=== PATIENT | male | born 1945 | race Caucasian/White ===

== ENCOUNTER 2016-10-28 16:26 | Observation (INO) | payer OTHER ==
[~2016-10-28] VITALS: Ht 170.2 cm; Wt 77.0 kg
[~2016-10-28 16:26] MED LIST: AMIT50TA13 PO; ATOR20TA42 PO; CEFADROXIL; DIOV160T60 PO; FENT25DI TD; HYDR10TA16 PO; METH500T3 PO; PROT40TA PO; REST30CA PO; TIZA4 PO; [UNRECOGNIZED DRUG - CODE] PO; bystolic PO
[2016-10-28 16:30] VITALS: BP 138/83; PULSE 89; RESP 16; TEMP 97.9; O2SAT 97
--- NOTE | 2016-10-28 16:52 | PD ---
HPI Chief Complaint: S/P FALL Time Seen by Provider: 16:43 Travel History International Travel<30 days: No Contact w/Intl Traveler<30days: No Traveled to known affect area: No History of Present Illness HPI WAS WORKING ON ROOF AND FELL DOWN....NO LOC PER PATIENT, EMS PLACED CCOLLAR ON BUT PATIENT REFUSED BACKBOARD..AGREED TO BE BROUGHT INTO ER FOR FURTHER EVALUATION. PFSH Past Medical History High Cholesterol: Yes Diabetes: No Diminished Hearing: No Hypertension: Yes Immunizations Current: No Past Surgical History Abdominal Surgery: Yes (right inguinal hernia "30 yrs ago"; abd hernia and infection 2004) Joint Replacement: Yes (both knees 2006) Social History Alcohol Use: Yes (2 beers daily) Tobacco Use: No Substance Use: No Allergies-Medications (Allergen,Severity, Reaction): Coded Allergies: Morphine (Verified Allergy, Intermediate, confusion, 10/28/16) Reported Meds & Prescriptions Reported Meds & Active Scripts Active Reported [prevagen] Xarelto (Rivaroxaban) Unknown Strength Tab Unknown Dose PO DAILY Clonidine (Clonidine HCl) Unknown Strength Tab Unknown Dose PO BID Hydrocodone-Acetaminophen 10-325 mg Tab 1 Tab PO Q8HR PRN Fentanyl Patch 72 HR (Fentanyl) 50 Mcg/Hr Patch 50 Mcg T-DERMAL Q72H Remove old patch when new one placed. Lipitor (Atorvastatin Calcium) 20 Mg Tab 20 Mg PO HS Amitriptyline (Amitriptyline HCl) 50 Mg Tab 100 Mg PO HS Review of Systems Except as stated in HPI: all other systems reviewed are Neg Musculoskeletal: Positive: Pain (CHEST WALL PAIN) Physical Exam Narrative GENERAL: SKIN: Warm and dry. HEAD: Atraumatic. Normocephalic. EYES: Pupils equal and round. No scleral icterus. No injection or drainage. ENT: No nasal bleeding or discharge. Mucous membranes pink and moist. NECK: Trachea midline. No JVD. CARDIOVASCULAR: Regular rate and rhythm. RESPIRATORY: No accessory muscle use. Clear to auscultation. Breath sounds equal bilaterally. GASTROINTESTINAL: Abdomen soft, non-tender, nondistended. Hepatic and splenic margins not palpable. MUSCULOSKELETAL: Extremities without clubbing, cyanosis, or edema. No obvious deformities. BUT CHEST WALL TTPALPATION ON EXAMINATION (ON RIGHT SIDE) , NO CREPITUS, NO STEPOFFS NEUROLOGICAL: Awake and alert. No obvious cranial nerve deficits. Motor grossly within normal limits. Five out of 5 muscle strength in the arms and legs. Normal speech. PSYCHIATRIC: Appropriate mood and affect; insight and judgment normal. Data Data Last Documented VS Vital Signs Date Time Temp Pulse Resp B/P Pulse Ox O2 Delivery O2 Flow Rate FiO2 10/28/16 21:09 89 16 159/81 99 10/28/16 16:30 Room Air 10/28/16 16:30 97.9 Orders I-Stat Profile (10/28/16 16:43) Ct Brain W/O Iv Contrast(Rout) (10/28/16 16:43) Ct Cerv Spine W/O Contrast (10/28/16 16:43) Ct Abd/Pel W Iv Contrast(Rout) (10/28/16 16:43) Ct Thorax/ Chest W Iv Contrast (10/28/16 16:43) Blood Glucose (10/28/16 16:43) I-Stat Creatinine (10/28/16 18:08) Vascular Access Team Consult/P PRN (10/28/16 18:49) Vascular Poc Ultrasound (10/28/16 ) Ct Thor Spine W/O Contrast (10/28/16 19:43) Ct Lumb Spine W/O Contrast (10/28/16 19:43) Complete Blood Count With Diff (10/28/16 19:43) Prothrombin Time / Inr (Pt) (10/28/16 19:43) Act Partial Throm Time (Ptt) (10/28/16 19:43) Hepatic Functional Panel (10/28/16 19:43) Lipase (10/28/16 19:43) Urinalysis - C+S If Indicated (10/28/16 19:43) Chest, Single Ap (10/28/16 19:43) Pelvis, Ap Only (Routine) (10/28/16 19:43) Cefazolin 2 Gm Premix (Ancef 2 Gm Premix (10/28/16 19:45) Glck-Hvb-Qiipnp (Booster) Inj (Boostrix (10/28/16 19:45) Sodium Chlor 0.9% 1000 Ml Inj (Ns 1000 M (10/28/16 19:45) Shoulder, Complete (>2vws) (10/28/16 19:43) Shoulder, Complete (>2vws) (10/28/16 19:43) Ed Poc Ultrasound (10/28/16 19:47) Ice/Cold Pack (10/28/16 21:00) Splint Or Brace Apply/Monitor (10/28/16 21:00) Electrocardiogram (10/28/16 19:58) Iohexol 350 Inj (Omnipaque 350 Inj) (10/28/16 21:27) Hydromorphone Pf Inj (Dilaudid Pf Inj) (10/28/16 22:30) Ondansetron Inj (Zofran Inj) (10/28/16 22:30) Admit Order (Ed Use Only) (10/28/16 22:23) Quality Assurance Associate / Telemetry ULISSES.Q8H (10/28/16 22:23) Vital Signs (Adult) Q4H (10/28/16 22:23) Sips And Chips (10/28/16 22:23) Activity Bed Rest With Brp (10/28/16 22:23) ^ Saline Lock (10/28/16 22:23) Resp Oxygen Dao C Titrat 1-4 L (10/28/16 ) Notify Dr: Other (10/28/16 22:23) Ondansetron Inj (Zofran Inj) (10/28/16 22:30) Neuro Checks . ORDERED (10/28/16 22:23) Sodium Chloride 0.9% Flush (Ns Flush) (10/29/16 09:00) Sodium Chloride 0.9% Flush (Ns Flush) (10/28/16 22:30) Hydromorphone Pf Inj (Dilaudid Pf Inj) (10/28/16 22:30) Labs Laboratory Tests Test 10/28/16 10/28/16 10/28/16 16:50 19:05 21:06 Bedside Hemoglobin 12.9 G/DL Bedside Hematocrit 38.0 % Bedside Sodium 144 MMOL/L Bedside Potassium 4.1 MMOL/L Bedside Chloride 110 MMOL/L Bedside Blood Urea Nitrogen 21 MG/DL Bedside Glucose 114 MG/DL Total Bilirubin 0.5 MG/DL Direct Bilirubin 0.1 MG/DL Indirect Bilirubin 0.4 MG/DL Aspartate Amino Transf 33 U/L (AST/SGOT) Alanine Aminotransferase 31 U/L (ALT/SGPT) Alkaline Phosphatase 86 U/L Total Protein 7.2 GM/DL Albumin 4.3 GM/DL Lipase 103 U/L Bedside Creatinine 0.6 MG/DL White Blood Count 12.6 TH/MM3 Red Blood Count 4.03 MIL/MM3 Hemoglobin 13.0 GM/DL Hematocrit 37.6 % Mean Corpuscular Volume 93.3 FL Mean Corpuscular Hemoglobin 32.3 PG Mean Corpuscular Hemoglobin 34.6 % Concent Red Cell Distribution Width 13.6 % Platelet Count 151 TH/MM3 Mean Platelet Volume 8.0 FL Neutrophils (%) (Auto) 86.9 % Lymphocytes (%) (Auto) 5.1 % Monocytes (%) (Auto) 8.0 % Eosinophils (%) (Auto) 0.0 % Basophils (%) (Auto) 0.0 % Neutrophils # (Auto) 11.0 TH/MM3 Lymphocytes # (Auto) 0.6 TH/MM3 Monocytes # (Auto) 1.0 TH/MM3 Eosinophils # (Auto) 0.0 TH/MM3 Basophils # (Auto) 0.0 TH/MM3 CBC Comment DIFF FINAL Differential Comment Prothrombin Time 11.5 SEC Prothromb Time International 1.0 RATIO Ratio Activated Partial 25.7 SEC Thromboplast Time MDM Medical Decision Making Medical Screen Exam Complete: Yes Emergency Medical Condition: Yes Medical Record Reviewed: Yes Differential Diagnosis FX V DISLOCATION V RIB FX VS SPLEEN/LIVER LAC V PTX V ICH Narrative Course PATIENT MAINTAINED ON C COLLAR DURING EVALUATION AND SIGNED OUT TO DR FIGUEREDO PENDING CT TO BE PERFORMED AND RESULTED AND FURTHER DISPOSITION SINCE ONLY AVAILABLE LABS AT THE TIME WAS ISTAT. Diagnosis Primary Impression: Fall from height of greater than 3 feet Fabian Pike MD Oct 28, 2016 16:52
[2016-10-28 17:08] LABS: I-STAT POTASSIUM 4.1 MMOL/L (3.5-4.9)
--- NOTE | 2016-10-28 19:11 | PD ---
Physical Exam Narrative General: The patient is a well-developed well-nourished male in no acute distress. The patient is currently in the cervical collar. Head and Neck exam: Head is normocephalic atraumatic. No facial bone tenderness or increased facial bone mobility noted on palpation. Eyes: EOMI, pupils are equal round and reactive to light. Nose: Midline septum with pink mucous membranes Mouth: Dentition unremarkable. Moist mucus membranes. Posterior oropharynx is not erythematous. No tonsillar hypertrophy. Uvula midline. Airway patent. Neck: The patient is immobilized in a cervical collar. No tracheal deviation. The trachea appears midline. Cardiovascular: Regular rate and rhythm without murmurs, gallops, or rubs. No pulse deficit to the extremities and simultaneous auscultation and palpation of his radial artery. Lungs: Clear to auscultation bilaterally. No wheezes, rhonchi, or rales. No chest wall tenderness to palpation. No erythema or ecchymosis noted. No crepitus , step off, or flail segment noted. Abdomen: Soft, with minimal tenderness reported on palpation of the left lower quadrant of the abdomen and the right upper quadrant of the abdomen. No guarding, rebound, or rigidity. No erythema or ecchymosis noted. Extremities: No instability noted on pelvic rock, however the patient has tenderness on palpation along the right side of the lateral hip.. No clubbing, cyanosis, or edema. 2+ pulses in all 4 extremities. No extremity tenderness or deformity noted on palpation or passive/ active range of motion, except reported pain in bilateral shoulders, however the patient has full range of motion without crepitus, step off. Back: The patient was log rolled off the backboard prior to my arrival when he was initially examined by Dr. Pike. Neurologic Exam: Cranial nerves 2-12 were intact on exam. Strength is 5/5 in all 4 extremities. No sensory deficits noted. Skin Exam: No rash noted. I the patient has an abrasion to the right upper extremity. Data Data Last Documented VS Vital Signs Date Time Temp Pulse Resp B/P Pulse Ox O2 Delivery O2 Flow Rate FiO2 10/28/16 21:09 89 16 159/81 99 10/28/16 16:30 Room Air 10/28/16 16:30 97.9 Orders I-Stat Profile (10/28/16 16:43) Ct Brain W/O Iv Contrast(Rout) (10/28/16 16:43) Ct Cerv Spine W/O Contrast (10/28/16 16:43) Ct Abd/Pel W Iv Contrast(Rout) (10/28/16 16:43) Ct Thorax/ Chest W Iv Contrast (10/28/16 16:43) Blood Glucose (10/28/16 16:43) I-Stat Creatinine (10/28/16 18:08) Vascular Access Team Consult/P PRN (10/28/16 18:49) Vascular Poc Ultrasound (10/28/16 ) Ct Thor Spine W/O Contrast (10/28/16 19:43) Ct Lumb Spine W/O Contrast (10/28/16 19:43) Complete Blood Count With Diff (10/28/16 19:43) Prothrombin Time / Inr (Pt) (10/28/16 19:43) Act Partial Throm Time (Ptt) (10/28/16 19:43) Hepatic Functional Panel (10/28/16 19:43) Lipase (10/28/16 19:43) Urinalysis - C+S If Indicated (10/28/16 19:43) Chest, Single Ap (10/28/16 19:43) Pelvis, Ap Only (Routine) (10/28/16 19:43) Cefazolin 2 Gm Premix (Ancef 2 Gm Premix (10/28/16 19:45) Hsks-Wse-Xajhae (Booster) Inj (Boostrix (10/28/16 19:45) Sodium Chlor 0.9% 1000 Ml Inj (Ns 1000 M (10/28/16 19:45) Shoulder, Complete (>2vws) (10/28/16 19:43) Shoulder, Complete (>2vws) (10/28/16 19:43) Ed Poc Ultrasound (10/28/16 19:47) Ice/Cold Pack (10/28/16 21:00) Splint Or Brace Apply/Monitor (10/28/16 21:00) Electrocardiogram (10/28/16 19:58) Iohexol 350 Inj (Omnipaque 350 Inj) (10/28/16 21:27) Hydromorphone Pf Inj (Dilaudid Pf Inj) (10/28/16 22:30) Ondansetron Inj (Zofran Inj) (10/28/16 22:30) Admit Order (Ed Use Only) (10/28/16 22:23) Preschool Teacher Aide / Telemetry ULISSES.Q8H (10/28/16 22:23) Vital Signs (Adult) Q4H (10/28/16 22:23) Sips And Chips (10/28/16 22:23) Activity Bed Rest With Brp (10/28/16 22:23) Complete Blood Count With Diff (10/29/16 06:00) Basic Metabolic Panel (Bmp) (10/29/16 06:00) ^ Saline Lock (10/28/16 22:23) Resp Oxygen Dao C Titrat 1-4 L (10/28/16 ) Notify Dr: Other (10/28/16 22:23) Ondansetron Inj (Zofran Inj) (10/28/16 22:30) Neuro Checks . ORDERED (10/28/16 22:23) Sodium Chloride 0.9% Flush (Ns Flush) (10/29/16 09:00) Sodium Chloride 0.9% Flush (Ns Flush) (10/28/16 22:30) Hydromorphone Pf Inj (Dilaudid Pf Inj) (10/28/16 22:30) Labs Laboratory Tests Test 10/28/16 10/28/16 10/28/16 16:50 19:05 21:06 Bedside Hemoglobin 12.9 G/DL Bedside Hematocrit 38.0 % Bedside Sodium 144 MMOL/L Bedside Potassium 4.1 MMOL/L Bedside Chloride 110 MMOL/L Bedside Blood Urea Nitrogen 21 MG/DL Bedside Glucose 114 MG/DL Total Bilirubin 0.5 MG/DL Direct Bilirubin 0.1 MG/DL Indirect Bilirubin 0.4 MG/DL Aspartate Amino Transf 33 U/L (AST/SGOT) Alanine Aminotransferase 31 U/L (ALT/SGPT) Alkaline Phosphatase 86 U/L Total Protein 7.2 GM/DL Albumin 4.3 GM/DL Lipase 103 U/L Bedside Creatinine 0.6 MG/DL White Blood Count 12.6 TH/MM3 Red Blood Count 4.03 MIL/MM3 Hemoglobin 13.0 GM/DL Hematocrit 37.6 % Mean Corpuscular Volume 93.3 FL Mean Corpuscular Hemoglobin 32.3 PG Mean Corpuscular Hemoglobin 34.6 % Concent Red Cell Distribution Width 13.6 % Platelet Count 151 TH/MM3 Mean Platelet Volume 8.0 FL Neutrophils (%) (Auto) 86.9 % Lymphocytes (%) (Auto) 5.1 % Monocytes (%) (Auto) 8.0 % Eosinophils (%) (Auto) 0.0 % Basophils (%) (Auto) 0.0 % Neutrophils # (Auto) 11.0 TH/MM3 Lymphocytes # (Auto) 0.6 TH/MM3 Monocytes # (Auto) 1.0 TH/MM3 Eosinophils # (Auto) 0.0 TH/MM3 Basophils # (Auto) 0.0 TH/MM3 CBC Comment DIFF FINAL Differential Comment Prothrombin Time 11.5 SEC Prothromb Time International 1.0 RATIO Ratio Activated Partial 25.7 SEC Thromboplast Time MDM Medical Record Reviewed: Yes Supervised Visit with JAKE: No Interpretation(s) Last Impressions Thoracic Spine CT 10/28/161942 Signed Impressions: Service Date/Time: Friday, October 28, 2016 20:41 - CONCLUSION: 1. Minimal fractures along the endplates superiorly at T3 and T12. 2. Fracture of the right third and fifth ribs medially. 3. Transverse process fracture on the right at T3. Girish Gannon MD Shoulder X-Ray 10/28/161942 Signed Impressions: Service Date/Time: Friday, October 28, 2016 20:20 - CONCLUSION: Degenerative changes without fracture. Girish Gannon MD Shoulder X-Ray 10/28/161942 Signed Impressions: Service Date/Time: Friday, October 28, 2016 20:18 - CONCLUSION: Minimal fracture distal clavicle. Girish Gannon MD Pelvis X-Ray 10/28/161942 Signed Impressions: Service Date/Time: Friday, October 28, 2016 20:25 - CONCLUSION: No acute fracture. Girish Gannon MD Lumbar Spine CT 10/28/161942 Draft Impressions: Service Date/Time: Friday, October 28, 2016 20:38 - CONCLUSION: 1. Minimal fracture superior endplate T12. 2. No lumbar spine fracture. Girish Gannon MD Chest X-Ray 10/28/161942 Signed Impressions: Service Date/Time: Friday, October 28, 2016 20:17 - CONCLUSION: Bibasilar densities. Girish Gannon MD Head CT 10/28/161642 Signed Impressions: Service Date/Time: Friday, October 28, 2016 20:32 - CONCLUSION: 1. Soft tissue contusion. 2. No acute intracranial abnormalities. Girish Gannon MD Chest CT 10/28/161642 Signed Impressions: Service Date/Time: Friday, October 28, 2016 20:41 - CONCLUSION: 1. Minimal bibasilar atelectasis. 2. Coronary artery calcifications. 3. No acute thoracic injury. Girish Gannon MD Cervical Spine CT 10/28/161642 Signed Impressions: Service Date/Time: Friday, October 28, 2016 20:34 - CONCLUSION: 1. No fracture or subluxation. Girish Gannon MD Abdomen/Pelvis CT 10/28/161642 Signed Impressions: Service Date/Time: Friday, October 28, 2016 20:38 - CONCLUSION: 1. Minimal fracture T12 vertebral body. 2. No abdominal visceral injury. Girish Gannon MD Narrative Course During the course of the patients emergency department visit, the patients history, examination, and differential diagnosis were reviewed with the patient. The patient had IV access obtained and blood work sent for analysis. The patient's case was checked out to me by Dr. Pike at the conclusion of his shift. Please see his complete history and physical. The patient reportedly fell off of a roof. The patient was ambulatory at the scene. The patient reports to me that he was sitting up on his single story roof of his house in a chair when the leg of the chair collapsed causing him to fall off of the roof and land on his back. The patient reports that he now has bilateral shoulder pain, back pain all the way down his back. He denies having any numbness or tingling to his extremities. He denies having any chest pain, chest pressure, shortness of breath, abdominal pain. He denies having any loss of consciousness. 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 A chest x-ray, pelvic x-ray, bilateral shoulder films has been ordered. A CT scan of the head, neck, thorax, abdomen and pelvis, T-spine and L -spine have been ordered. The patient had an ECG done. The patient's ECG reveals a sinus rhythm heart rate of 68, borderline left axis deviation, incomplete right bundle branch block. No acute ST segment elevation or depression is noted. QRS duration is 102 ms, QTC 364 ms. A fast examination was done by me. The patient's fast was negative for peritoneal or pericardial fluid collections. The patient was initially provided an update of his tetanus, Ancef 2 g IV, normal saline 1 L IV fluid bolus. The patients laboratory studies were reviewed and remarkable for a hemoglobin of 12.9, i-STAT revealed a sodium of 144, potassium 4.1, chloride 110, BUN 21, glucose 114. Creatinine is 0.6. Radiology studies were reviewed and remarkable for a CT scan of the brain that shows soft tissue contusion, no acute intracranial abnormality. CT scan of the C-spine shows no fracture or subluxation. The patient's cervical collar will be removed. CT scan of the chest reveals minimal bibasilar atelectasis, coronary artery calcifications, no acute thoracic injury. CT scan of the abdomen and pelvis shows minimal fracture T12 vertebral body, no abdominal visceral injury. CT scan of the T-spine reveals minimal fractures along the end plate superiorly at T3 and T12, fracture of the right third and fifth ribs medially, transverse process fracture on the right at T3. Shoulder x-ray on the left reveals degenerative changes, no acute abnormality. Shoulder x-ray on the left reveals minimal fracture of the distal clavicle. The patient will be placed in a sling. Pelvic x-ray shows no acute abnormality. CT scan of the lumbar spine shows minimal fracture superior endplate T12, no lumbar spine fractures, chest x-ray shows right basilar atelectasis. No other acute abnormality. A call was then placed out to the trauma surgeon regarding this patient's multiple traumatic injuries and the fact that he is chronically anticoagulated on Xarelto. The patient will likely be admitted for observation. The patients results were discussed with the patient, including the plan of care. I explained that further testing and/ or monitoring is indicated based on the patients history, examination, and/ or laboratory findings. Therefore, I recommended admission for additional evaluation. The patient expressed understanding and was agreeable with this plan. The patient was admitted to the hospital in stable condition and sent to a bed under the care of the trauma service. Procedures Procedure Narrative Emergency department FAST was performed with patient consent. The curvilinear probe was used in the right upper quadrant/Morison's pouch, suprapubic, left upper quadrant/spleenorenal space, and epigastric. There was no evidence of peritoneal free fluid, or pericardial effusion. Physician Communication Physician Communication The patient's case was discussed with Dr. Peres who did agree to admit the patient for further evaluation and treatment at this time. Diagnosis Primary Impression: Fall from height of greater than 3 feet Additional Impressions: Right clavicle fracture Qualified Code: S42.034A - Closed nondisplaced fracture of acromial end of right clavicle, initial encounter T3 vertebral fracture Qualified Code: S22.039A - Closed fracture of third thoracic vertebra, unspecified fracture morphology, initial encounter Fracture, ribs Qualified Code: S22.41XA - Closed fracture of multiple ribs of right side, initial encounter T12 compression fracture Qualified Code: S22.080A - T12 compression fracture, closed, initial encounter Admitting Information Admitting Physician Requests: Observation Anamika Veronica MD Oct 28, 2016 19:11
[2016-10-28] MEDS ORDERED: ceFAZolin 2 GM PREMIX 50 ML IV ONE (19:45)
[2016-10-28] MEDS ORDERED: SODIUM CHLOR 0.9% 1000 ML INJ 1,000 ML IV ONE (19:45)
[2016-10-28] MEDS ORDERED: DIPHTH/TETANUS/ACEL PERTUSSIS (BOOSTER) 0.5 ML VIAL/PFS IM ONE (19:45)
[2016-10-28 19:46] VITALS: BP 138/83; PULSE 89; RESP 16; TEMP 97.9; O2SAT 98
--- NOTE | 2016-10-28 20:36 | RADRPT ---
EXAM DATE/TIME: 10/28/2016 20:17 [facility] COMPARISON: No previous studies available for comparison. INDICATIONS : Chest pain after fall. MEDICAL HISTORY : None. SURGICAL HISTORY : None. ENCOUNTER: Initial ACUITY: 1 day PAIN SCORE: 10 LOCATION: Bilateral chest FINDINGS: A single view of the chest demonstrates bibasilar densities. Heart normal. The cardiomediastinal cont ours are unremarkable. Osseous structures are intact. CONCLUSION: Bibasilar densities. Girish Gannon MD on October 28, 2016 at 20:32 Board Certified Radiologist. This report was verified electronically.
--- NOTE | 2016-10-28 20:38 | RADRPT ---
EXAM DATE/TIME: 10/28/2016 20:18 [facility] COMPARISON: No previous studies available for comparison. INDICATIONS : Right shoulder pain after fall. MEDICAL HISTORY : None. SURGICAL HISTORY : None. ENCOUNTER: Initial ACUITY: 1 day PAIN SCORE: 10/10 LOCATION: Right shoulder. FINDINGS: Multiple view examination of the right shoulder demonstrates fracture distal clavicle. This extends into the a.c. joint. Mild degenerative changes of the shoulder The glenohumeral and acromioclavicular joints are maintained. There is normal range of motion between internal and external rotation. Bon y mineralization is normal. CONCLUSION: Minimal fracture distal clavicle. Girish Gannon MD on October 28, 2016 at 20:35 Board Certified Radiologist. This report was verified electronically.
--- NOTE | 2016-10-28 20:39 | RADRPT ---
EXAM DATE/TIME: 10/28/2016 20:20 [facility] COMPARISON: No previous studies available for comparison. INDICATIONS : Left shoulder pain after fall. MEDICAL HISTORY : None. SURGICAL HISTORY : None. ENCOUNTER: Initial ACUITY: 1 day PAIN SCORE: 10/10 LOCATION: Left shoulder. FINDINGS: Multiple view examination of the left shoulder demonstrates no evidence of fracture or dislocation. D egenerative changes. Bony mineralization is normal. CONCLUSION: Degenerative changes without fracture. Girish Gannon MD on October 28, 2016 at 20:37 Board Certified Radiologist. This report was verified electronically.
--- NOTE | 2016-10-28 20:39 | RADRPT ---
EXAM DATE/TIME: 10/28/2016 20:25 [facility] COMPARISON: No previous studies available for comparison. INDICATIONS : Pelvic pain after fall. MEDICAL HISTORY : None. SURGICAL HISTORY : None. ENCOUNTER: Initial ACUITY: 1 day PAIN SCORE: 10/10 LOCATION: Bilateral buttock FINDINGS: A single frontal view of the pelvis demonstrates no evidence of fracture. The bony pelvic ring is in tact. Bony mineralization is normal. The soft tissues are intact. Penile prosthesis. Mild degenerat malik changes of the tibia. CONCLUSION: No acute fracture. Girish Gannon MD on October 28, 2016 at 20:37 Board Certified Radiologist. This report was verified electronically.
[2016-10-28 20:49] LABS: INDIRECT BILIRUBIN 0.4 MG/DL (0.0-0.8); TOTAL BILIRUBIN ADULT 0.5 MG/DL (0.2-1.0)
[2016-10-28 21:09] VITALS: BP 159/81; PULSE 89; RESP 16; O2SAT 99
--- NOTE | 2016-10-28 21:25 | RADRPT ---
EXAM DATE/TIME: 10/28/2016 20:41 [facility] COMPARISON: No previous studies available for comparison. INDICATIONS : Trauma, patient fell off roof. IV CONTRAST: 85 cc Omnipaque 350 (iohexol) IV ; Cumulative dose for multiple exams. RADIATION DOSE: 9.96 CTDIvol (mGy) ; Combined studies - Thorax/Abdomen/Pelvis MEDICAL HISTORY : Hypertension. Cerebrovascular disease. SURGICAL HISTORY : None. ENCOUNTER: Initial ACUITY: 1 day PAIN SCALE: 10/10 LOCATION: Bilateral chest TECHNIQUE: Volumetric scanning of the chest was performed. Using automated exposure control and adjustment of t he mA and/or kV according to patient size, radiation dose was kept as low as reasonably achievable to obtain optimal diagnostic quality images. DICOM format image data is available electronically for review and comparison. Follow-up recommendations for incidentally detected pulmonary nodules are based at a minimum on nodul e size and patient risk factors according to Fleischner Society Guidelines. FINDINGS: LUNGS: There is no consolidation or pneumothorax. No concerning pulmonary nodule is visualized. Minimal bib asilar atelectasis. PLEURA: There is no pleural thickening or pleural effusion. MEDIASTINUM: The heart and great vessels demonstrate no acute abnormality. There is some motion artifact. There is no mediastinal or hilar lymphadenopathy. Coronary artery calcifications. There are some collateral v essels in the left prevascular space. No central pulmonary emboli. AXILLAE: Within normal limits. No lymphadenopathy. SKELETAL: Scoliosis. No fractures. MISCELLANEOUS: The visualized upper abdominal organs demonstrate no acute abnormality. CONCLUSION: 1. Minimal bibasilar atelectasis. 2. Coronary artery calcifications. 3. No acute thoracic injury. Girish Gannon MD on October 28, 2016 at 21:19 Board Certified Radiologist. This report was verified electronically.
[2016-10-28] MEDS ORDERED: IOHEXOL 350 MG/ML 10 ML VIAL (for RAD DIAG) IV ONE (21:27)
--- NOTE | 2016-10-28 21:27 | RADRPT ---
EXAM DATE/TIME: 10/28/2016 20:32 [facility] COMPARISON: No previous studies available for comparison. INDICATIONS : Trauma, patient fell off roof. RADIATION DOSE: 69.15 CTDIvol (mGy) MEDICAL HISTORY : Cerebrovascular disease. Hypertension. SURGICAL HISTORY : None. ENCOUNTER: Initial ACUITY: 1 day PAIN SCALE: 0/10 LOCATION: cranial TECHNIQUE: Multiple contiguous axial images were obtained of the head. Using automated exposure control and adj ustment of the mA and/or kV according to patient size, radiation dose was kept as low as reasonably a chievable to obtain optimal diagnostic quality images. DICOM format image data is available electro nically for review and comparison. FINDINGS: CEREBRUM: The ventricles are normal for age. A lacunar infarct. No evidence of midline shift, mass lesion, hemo rrhage or acute infarction. No extra-axial fluid collections are seen.POSTERIOR FOSSA: The cerebellum and brainstem are intact. The 4th ventricle is midline. The cerebellopontine angle i s unremarkable. EXTRACRANIAL: The visualized portion of the orbits is intact. Right parietal soft tissue contusion. SKULL: The calvaria is intact. No evidence of skull fracture. CONCLUSION: 1. Soft tissue contusion. 2. No acute intracranial abnormalities. Girish Gannon MD on October 28, 2016 at 21:24 Board Certified Radiologist. This report was verified electronically.
[2016-10-28 21:28] LABS: HEMATOCRIT 37.6 % (39.0-51.0); HEMO FLAGS DIFF FINAL; LYMPH % 5.1 % (9.0-44.0); LYMPHOCYTE # 0.6 TH/MM3 (1.0-4.8); MEAN CELL VOLUME 93.3 FL (80.0-100.0); MEAN CORPUSCULAR HEMOGLOBIN 32.3 PG (27.0-34.0); MEAN CORPUSCULAR HGB CONC 34.6 % (32.0-36.0); NEUT % 86.9 % (16.0-70.0); PLATELET COUNT 151 TH/MM3 (150-450); RED BLOOD COUNT 4.03 MIL/MM3 (4.50-5.90); RED CELL DISTRIBUTION WIDTH 13.6 % (11.6-17.2); WHITE BLOOD COUNT 12.6 TH/MM3 (4.0-11.0)
--- NOTE | 2016-10-28 21:30 | RADRPT ---
EXAM DATE/TIME: 10/28/2016 20:38 [facility] COMPARISON: No previous studies available for comparison. INDICATIONS : Trauma, patient fell off roof. IV CONTRAST: 85 cc Omnipaque 350 (iohexol) IV ; Cumulative dose for multiple exams. ORAL CONTRAST: No oral contrast ingested. RADIATION DOSE: 9.96 CTDIvol (mGy) ; Combined studies - Thorax/Abdomen/Pelvis MEDICAL HISTORY : Hypertension. Cerebrovascular disease. SURGICAL HISTORY : Inguinal hernia repair. Stent. ENCOUNTER: Initial ACUITY: 1 day PAIN SCALE: 10/10 LOCATION: All quadrants. TECHNIQUE: Volumetric scanning of the abdomen and pelvis was performed. Using automated exposure control and ad justment of the mA and/or kV according to patient size, radiation dose was kept as low as reasonably achievable to obtain optimal diagnostic quality images. DICOM format image data is available electro nically for review and comparison. FINDINGS: LOWER LUNGS: The visualized lower lungs are clear. LIVER: Homogeneous density without lesion. There is no dilation of the biliary tree. No calcified gallston es. SPLEEN: Normal size without lesion. PANCREAS: Within normal limits. KIDNEYS: Normal in size and shape. There is no mass, stone or hydronephrosis. ADRENAL GLANDS: Within normal limits. VASCULAR: There is no aortic aneurysm. Inferior vena cava filter below the renal veins. BOWEL/MESENTERY: The stomach, small bowel, and colon demonstrate no acute abnormality. There is no free intraperitone al air or fluid. ABDOMINAL WALL: Within normal limits. RETROPERITONEUM: There is no lymphadenopathy. BLADDER: No wall thickening or mass. Distended bladder. REPRODUCTIVE: Within normal limits. Penile prosthesis. INGUINAL: There is no lymphadenopathy or hernia. MUSCULOSKELETAL: Appears to be minimal fracture at T12.. CONCLUSION: 1. Minimal fracture T12 vertebral body. 2. No abdominal visceral injury. Girish Gannon MD on October 28, 2016 at 21:25 Board Certified Radiologist. This report was verified electronically.
--- NOTE | 2016-10-28 21:36 | RADRPT ---
EXAM DATE/TIME: 10/28/2016 20:34 [facility] COMPARISON: No previous studies available for comparison. INDICATIONS : Trauma, patient fell off roof. RADIATION DOSE: 41.37 CTDIvol (mGy) MEDICAL HISTORY : None SURGICAL HISTORY : None. ENCOUNTER: Initial ACUITY: 1 day PAIN SCALE: 3/10 LOCATION: neck TECHNIQUE: Volumetric scanning of the cervical spine was performed. Multiplanar reconstructions in the sagittal, coronal and oblique axial planes were performed. Using automated exposure control and adjustment o f the mA and/or kV according to patient size, radiation dose was kept as low as reasonably achievable to obtain optimal diagnostic quality images. DICOM format image data is available electronically f or review and comparison. FINDINGS: VERTEBRAE: Normal vertebral body height. Scattered hypertrophic facets. No fracture. ALIGNMENT: No evidence of subluxation. C2-C3: The bony spinal canal is normal in size. No evidence of disc bulge or herniation. The neural forami na are bilaterally patent. C3-C4: The bony spinal canal is normal in size. No evidence of disc bulge or herniation. The neural forami na are bilaterally patent. C4-C5: The bony spinal canal is normal in size. No evidence of disc bulge or herniation. The neural forami na are bilaterally patent. C5-C6: Mild broad-based disc bulge without canal stenosis. The neural foramina are bilaterally patent. C6-C7: Mild broad-based posterior disc osteophyte complex without canal stenosis.. The neural foramina are bilaterally patent. C7-T1: The bony spinal canal is normal in size. No evidence of disc bulge or herniation. The neural forami na are bilaterally patent. CONCLUSION: 1. No fracture or subluxation. Girish Gannon MD on October 28, 2016 at 21:33 Board Certified Radiologist. This report was verified electronically.
[2016-10-28 21:41] LABS: APTT (PATIENT) 25.7 SEC (24.3-30.1); PROTHROMBIN TIME - PATIENT 11.5 SEC (9.8-11.6)
--- NOTE | 2016-10-28 21:44 | RADRPT ---
EXAM DATE/TIME: 10/28/2016 20:41 [facility] COMPARISON: No previous studies available for comparison. INDICATIONS : Trauma, patient fell off roof. RADIATION DOSE: ; Reconstructed from previous dataset, no dose MEDICAL HISTORY : None SURGICAL HISTORY : None. ENCOUNTER: Initial ACUITY: 1 day PAIN SCALE: 3/10 LOCATION: Thoracic spine. TECHNIQUE: Volumetric scanning of the thoracic spine was performed. Multiplanar reconstructions in the sagittal , coronal and oblique axial planes were performed. Using automated exposure control and adjustment o f the mA and/or kV according to patient size, radiation dose was kept as low as reasonably achievable to obtain optimal diagnostic quality images. DICOM format image data is available electronically f or review and comparison. FINDINGS: The vertebral bodies of the thoracic spine are in normal alignment without evidence of subluxation. Vertebral body height is maintained. Minimal fracture along the superior endplate at T3. Minimal frac ture the right medial 3rd rib and transverse process. Minimal fracture of the right fifth rib mediall y. Minimal fracture at T12 along the left aspect of the vertebral body greatest along the endplates s uperiorly. No retropulsion of posterior fragments. T1-T2: Normal. T2-T3: The thecal sac has a normal diameter. No evidence of disc bulge or protrusion. T3-T4: The thecal sac has a normal diameter. No evidence of disc bulge or protrusion. T4-T5: The thecal sac has a normal diameter. No evidence of disc bulge or protrusion. T5-T6: The thecal sac has a normal diameter. No evidence of disc bulge or protrusion. T6-T7: The thecal sac has a normal diameter. No evidence of disc bulge or protrusion. T7-T8: The thecal sac has a normal diameter. No evidence of disc bulge or protrusion. T8-T9: The thecal sac has a normal diameter. No evidence of disc bulge or protrusion. T9-T10: The thecal sac has a normal diameter. No evidence of disc bulge or protrusion. T10-T11: The thecal sac has a normal diameter. No evidence of disc bulge or protrusion. T11-T12: The thecal sac has a normal diameter. No evidence of disc bulge or protrusion. T12-L1: The thecal sac has a normal diameter. No evidence of disc bulge or protrusion. CONCLUSION: 1. Minimal fractures along the endplates superiorly at T3 and T12. 2. Fracture of the right third and fifth ribs medially. 3. Transverse process fracture on the right at T3. Girish Gannon MD on October 28, 2016 at 21:38 Board Certified Radiologist. This report was verified electronically.
--- NOTE | 2016-10-28 21:47 | RADRPT ---
EXAM DATE/TIME: 10/28/2016 20:38 [facility] COMPARISON: No previous studies available for comparison. INDICATIONS : Trauma, patient fell off roof. RADIATION DOSE: ; Reconstructed from previous dataset, no dose MEDICAL HISTORY : None SURGICAL HISTORY : None. ENCOUNTER: Initial ACUITY: 1 day PAIN SCALE: 8/10 LOCATION: Lumbar spine. TECHNIQUE: Volumetric scanning of the lumbar spine was performed. Multiplanar reconstructions in the sagittal, coronal and oblique axial planes were performed. Using automated exposure control and adjustment of the mA and/or kV according to patient size, radiation dose was kept as low as reasonably achievable t o obtain optimal diagnostic quality images. DICOM format image data is available electronically for review and comparison. FINDINGS: VERTEBRAE: Normal vertebral body height. No lumbar spine fracture. Fracture at T12 along the superior endplate g reatest on the left. ALIGNMENT: No evidence of subluxation. T12-L1: The thecal sac has a normal diameter. No evidence of disc bulge or protrusion. The neural foramina are patent bilaterally. L1-L2: The thecal sac has a normal diameter. No evidence of disc bulge or protrusion. The neural foramina are patent bilaterally. L2-L3: The thecal sac has a normal diameter. No evidence of disc bulge or protrusion. The neural foramina are patent bilaterally. L3-L4: Mild broad-based disc bulge abuts the thecal sac. Mild facet arthropathy.. The neural foramina are p atent bilaterally. .. L4-L5: Mild broad-based disc bulge abuts the thecal sac. Mild facet arthropathy The neural foramina are ortiz nt bilaterally. L5-S1: The thecal sac has a normal diameter. No evidence of disc bulge or protrusion. The neural foramina are patent bilaterally. CONCLUSION: 1. Minimal fracture superior endplate T12. 2. No lumbar spine fracture. Girish Gannon MD on October 28, 2016 at 21:44 Board Certified Radiologist. This report was verified electronically.
[2016-10-28] MEDS ORDERED: HYDROmorphone HCL PF 1 MG/ML VIAL IV PUSH ONE (22:30)
[2016-10-28] MEDS ORDERED: ONDANSETRON HCL 4 MG/2 ML VIAL IV PRN (22:30)
[2016-10-28] MEDS ORDERED: ONDANSETRON HCL 4 MG/2 ML VIAL IV PUSH ONE (22:30)
[2016-10-28] MEDS ORDERED: CLON0.1T PO (23:37)
[2016-10-28] MEDS ORDERED: HYDR-3583 PO (23:37)
[2016-10-28] MEDS ORDERED: FENT50DI T-DERMAL (23:37)
[2016-10-28] MEDS ORDERED: LIPI20TA PO (23:37)
[2016-10-28] MEDS ORDERED: AMIT50TA3 PO (23:37)
[2016-10-28] MEDS ORDERED: XARE10TA PO (23:37)
[2016-10-28] MEDS ORDERED: prevagen (23:38)
[2016-10-28 23:50] LABS: BLOOD, URINE NEG (NEG); GLUCOSE,URINE NEG (NEG); KETONE, URINE 10 mg/dL (NEG); MUCUS URINE FEW /lpf (OCC); NITRITE,URINE NEG (NEG); SQUAMOUS EPITHELIAL CELL URINE <1 /hpf (0-5); URINE COLOR YELLOW (YELLW/STRAW)
[2016-10-28 23:52] LABS: COMMENT (UR) CULT NOT INDICATED; CULTURE IF INDICATED CULT NOT INDICATED
[2016-10-29 00:38] VITALS: BP 146/85; PULSE 94; RESP 16; O2SAT 95
[2016-10-29] MEDS: HYDROmorphone HCL PF 1 MG/ML VIAL IV PUSH PRN ×4 (00:38→16:54)
[2016-10-29 07:22] VITALS: BP 155/76; PULSE 83; RESP 20; TEMP 97.7
[2016-10-29] MEDS ORDERED: ACETAMINOPHEN 325 MG TAB PO PRN (07:30)
[2016-10-29] MEDS ORDERED: SODIUM CHLORIDE 0.9% FLUSH 10 ML FLUSH IV FLUSH PRN (07:30)
[2016-10-29] MEDS ORDERED: ONDANSETRON HCL 4 MG/2 ML VIAL IV PRN (07:30)
[2016-10-29] MEDS ORDERED: MAGNESIUM HYDROXIDE SUSP 30 ML CUP PO PRN (07:30)
[2016-10-29] MEDS ORDERED: ENALAPRILAT 1.25 MG/ML VIAL IV PRN (07:30)
[2016-10-29] MEDS: METHOCARBAMOL 500 MG TAB PO SCH ×2 (09:27→16:54)
[2016-10-29] MEDS: DOCUSATE SODIUM 100 MG CAP PO SCH ×2 (09:28→21:42)
[2016-10-29] MEDS: SODIUM CHLORIDE 0.9% FLUSH 10 ML FLUSH IV FLUSH SCH ×2 (09:51→21:43)
[2016-10-29] MEDS: LIDOCAINE HCL 5% PATCH T-DERMAL SCH (09:51)
[2016-10-29] MEDS ORDERED: REMOVE OLD LIDOCAINE PATCH T-DERMAL SCH (10:00)
[2016-10-29] MEDS: IBUPROFEN 600 MG TAB PO SCH ×2 (10:00→19:25)
--- NOTE | 2016-10-29 12:27 | HHI.PR ---
Subjective Subjective Notes PTD: 1 Patient complains of pain to his back." I fell and hit flat on my back." Denies numbness or tingling. He states he wants to leave. Objective Vitals/I&O Vital Signs Date Time Temp Pulse Resp B/P Pulse Ox O2 Delivery O2 Flow Rate FiO2 10/29/16 09:26 16 10/29/16 07:22 97.7 83 155/76 Room Air 10/29/16 06:20 21 10/29/16 00:38 95 Labs Laboratory Tests Test 10/28/16 10/28/16 10/28/16 10/28/16 16:50 19:05 21:06 23:28 Bedside Hemoglobin 12.9 Bedside Hematocrit 38.0 Bedside Sodium 144 Bedside Potassium 4.1 Bedside Chloride 110 Bedside Blood Urea Nitrogen 21 Bedside Glucose 114 Total Bilirubin 0.5 Direct Bilirubin 0.1 Indirect Bilirubin 0.4 Aspartate Amino Transf 33 (AST/SGOT) Alanine Aminotransferase 31 (ALT/SGPT) Alkaline Phosphatase 86 Total Protein 7.2 Albumin 4.3 Lipase 103 Bedside Creatinine 0.6 White Blood Count 12.6 Red Blood Count 4.03 Hemoglobin 13.0 Hematocrit 37.6 Mean Corpuscular Volume 93.3 Mean Corpuscular Hemoglobin 32.3 Mean Corpuscular Hemoglobin 34.6 Concent Red Cell Distribution Width 13.6 Platelet Count 151 Mean Platelet Volume 8.0 Neutrophils (%) (Auto) 86.9 Lymphocytes (%) (Auto) 5.1 Monocytes (%) (Auto) 8.0 Eosinophils (%) (Auto) 0.0 Basophils (%) (Auto) 0.0 Neutrophils # (Auto) 11.0 Lymphocytes # (Auto) 0.6 Monocytes # (Auto) 1.0 Eosinophils # (Auto) 0.0 Basophils # (Auto) 0.0 CBC Comment DIFF FINAL Differential Comment Prothrombin Time 11.5 Prothromb Time International 1.0 Ratio Activated Partial 25.7 Thromboplast Time Urine Color YELLOW Urine Turbidity HAZY Urine pH 6.0 Urine Specific [place] GREATER THAN 1.050 Urine Protein TRACE Urine Glucose (UA) NEG Urine Ketones 10 Urine Occult Blood NEG Urine Nitrite NEG Urine Bilirubin NEG Urine Urobilinogen LESS THAN 2.0 Urine Leukocyte Esterase NEG Urine RBC 18 Urine WBC 3 Urine Squamous Epithelial <1 Cells Urine Mucus FEW Microscopic Urinalysis Comment CULT NOT INDICATED Radiology Last Impressions Thoracic Spine CT 10/28/161942 Signed Impressions: Service Date/Time: Friday, October 28, 2016 20:41 - CONCLUSION: 1. Minimal fractures along the endplates superiorly at T3 and T12. 2. Fracture of the right third and fifth ribs medially. 3. Transverse process fracture on the right at T3. Girish Gannon MD Shoulder X-Ray 10/28/161942 Signed Impressions: Service Date/Time: Friday, October 28, 2016 20:20 - CONCLUSION: Degenerative changes without fracture. Girish Gannon MD Pelvis X-Ray 10/28/161942 Signed Impressions: Service Date/Time: Friday, October 28, 2016 20:25 - CONCLUSION: No acute fracture. Girish Gannon MD Lumbar Spine CT 10/28/161942 Signed Impressions: Service Date/Time: Friday, October 28, 2016 20:38 - CONCLUSION: 1. Minimal fracture superior endplate T12. 2. No lumbar spine fracture. Girish Gannon MD Chest X-Ray 10/28/161942 Signed Impressions: Service Date/Time: Friday, October 28, 2016 20:17 - CONCLUSION: Bibasilar densities. Girish Gannon MD Head CT 10/28/161642 Signed Impressions: Service Date/Time: Friday, October 28, 2016 20:32 - CONCLUSION: 1. Soft tissue contusion. 2. No acute intracranial abnormalities. Girish Gannon MD Chest CT 10/28/161642 Signed Impressions: Service Date/Time: Friday, October 28, 2016 20:41 - CONCLUSION: 1. Minimal bibasilar atelectasis. 2. Coronary artery calcifications. 3. No acute thoracic injury. Girish Gannon MD Cervical Spine CT 10/28/161642 Signed Impressions: Service Date/Time: Friday, October 28, 2016 20:34 - CONCLUSION: 1. No fracture or subluxation. Girish Gannon MD Abdomen/Pelvis CT 10/28/161642 Signed Impressions: Service Date/Time: Friday, October 28, 2016 20:38 - CONCLUSION: 1. Minimal fracture T12 vertebral body. 2. No abdominal visceral injury. Girish Gannon MD Narrative Exam GENERAL: This is a 71-year-old male lying flat in bed, with knees bent. SKIN: Warm and dry. HEAD: Atraumatic. Normocephalic. EYES: PERRLA ENT: No nasal bleeding or discharge. Mucous membranes pink and moist. NECK: Trachea midline. No JVD. CARDIOVASCULAR: Regular rate and rhythm. RESPIRATORY: No accessory muscle use. Lungs are clear to auscultation. Breath sounds equal bilaterally. No distress or dyspnea. GASTROINTESTINAL: BS + x 4 quads. Abdomen soft, non-tender, nondistended. MUSCULOSKELETAL: Extremities without cyanosis, or edema. + peripheral pulses x 4 extremities. Warm with good capillary refill and sensation. MAEW. Pain upon palpation to the thoracic area of back. NEUROLOGICAL: Awake and alert. Normal speech and pattern. A/P Problem List: (1) Fall from height of greater than 3 feet (2) Fracture, ribs (3) T12 compression fracture (4) Right clavicle fracture (5) T3 vertebral fracture Assessment and Plan HABEMATOLEL: This is a 71-year-old male who sustained a fall from a roof. He said he was sitting in a chair up on his roof, when the chair broke and he fell off the roof and landed flat on his back. No LOC. INJURIES: Soft tissue contusions head RIGHT clavicle fx RIGHT rib fx (3,5) T3 / T12 endplate fx Procedures: Consults: Orthopedics. Neurosurgery. Diet: Regular diet. Tolerating po diet. Encourage good po intake with each meal. Pulmonary: Encourage good pulmonary toileting. IS at bedside and pt encouraged to use. Rationale for use explained to patient, and verbalized understanding. PAIN Management: Percocet 5-10 mg q4h. Motrin 600 mg q 8. Dilaudid 0.5 mg q4h. Robaxin 500 mg q 8h. Lidoderm patch. Activity: BR. PT and OT ordered. GI prophylaxis: Pepcid hs. Bowel regimen: Colace and MOM. LBM: 0 DVT prophylaxis: Mechanical VTE with SCDs. Chemical management TBD. DC Planning: Case management consulted for assistance with final discharge disposition. Patient states that he wants to leave. Discussed with patient the importance of having consulted physician such as orthopedics and neurosurgery evaluate him prior to discharge. Emotional support provided to patient and family at bedside and plan of care discussed. Discussed with RN at bedside. Patient is hemodynamically stable and being managed on the med/surg floor. The trauma team will round each day, and evaluate plan of care on a daily basis. RIGHT clavicle fx Orthopedics consulted and assisting in management and care Right arm sling Pain management PT and OT ordered RIGHT rib fx (3,5) Supportive care O2 as needed Good pulmonary toileting - IS, CDB. Pain management PT and OT ordered T3 / T12 endplate fx Neurosurgery consulted and assisting in management and care Awaiting plan HTN Restarted home meds Problem Qualifiers (1) Fracture, ribs: Qualified Code: S22.41XA - Closed fracture of multiple ribs of right side, initial encounter (2) T12 compression fracture: Qualified Code: S22.080A - T12 compression fracture, closed, initial encounter (3) Right clavicle fracture: Qualified Code: S42.034A - Closed nondisplaced fracture of acromial end of right clavicle, initial encounter (4) T3 vertebral fracture: Qualified Code: S22.039A - Closed fracture of third thoracic vertebra, unspecified fracture morphology, initial encounter Geni Crespo Oct 29, 2016 12:27
[2016-10-29] MEDS ORDERED: oxyCODONE/ACETAMINOPHEN 5 MG/325 MG TAB PO PRN (13:00)
[2016-10-29] MEDS: cloNIDine HCL 0.1 MG TAB PO SCH ×2 (13:16→21:42)
[2016-10-29] MEDS: oxyCODONE/ACETAMINOPHEN 5 MG/325 MG TAB PO PRN (13:48)
[2016-10-29 15:01] VITALS: BP 179/82; PULSE 90; RESP 20; TEMP 98.2; O2SAT 97
--- NOTE | 2016-10-29 15:13 | PD.CONS ---
HPI Service Neurosurgery Consult Requested By Reason for Consult Fall from roof, thoracic fractures Primary Care Physician Unknown History of Present Illness This is a 71-year-old male who fell off of a roof on 10/28/2016 late in the afternoon. The area no seizure activity. Not tongue biting. No incontinence of stool or urine. He was brought to the emergency room and was found to have evidence of multiple rib fractures, multiple thoracic spine fractures and a right clavicle fracture. He was moving where both upper and lower extremities without focal deficits. Neurosurgical consultation was requested Review of Systems Constitutional: DENIES: Diaphoretic episodes, Fatigue, Fever, Weight gain, Weight loss, Chills, Dizziness, Change in appetite, Night Sweats Eyes: DENIES: Blurred vision, Diplopia, Eye inflammation, Eye pain, Vision loss , Photosensitivity, Double Vision Ears, nose, mouth, throat: DENIES: Tinnitus, Hearing loss, Vertigo, Nasal discharge, Oral lesions, Throat pain, Hoarseness, Ear Pain, Running Nose, Epistaxis, Sinus Pain, Toothache, Odynophagia Respiratory: DENIES: Apneas, Cough, Snoring, Wheezing, Hemoptysis, Sputum production, Shortness of breath Cardiovascular: DENIES: Chest pain, Palpitations, Syncope, Dyspnea on Exertion , PND, Lower Extremity Edema, Orthopnea, Claudication Gastrointestinal: DENIES: Abdominal pain, Black stools, Bloody stools, Constipation, Diarrhea, Nausea, Vomiting, Difficulty Swallowing, Anorexia Genitourinary: DENIES: Sexual dysfunction, Urinary frequency, Urinary incontinence, Urgency, Hematuria, Dysuria, Nocturia, Penile Discharge, Testicular Pain, Testicular Swelling Musculoskeletal: COMPLAINS OF: Muscle aches, Stiffness, Joint Swelling, Back pain, DENIES: Joint pain, Neck pain Integumentary: DENIES: Abnormal pigmentation, Nail changes, Pruritus, Rash Hematologic/lymphatic: COMPLAINS OF: Bruising, DENIES: Lymphadenopathy Immunologic/allergic: DENIES: Eczema, Urticaria Neurologic: DENIES: Abnormal gait, Headache, Localized weakness, Paresthesias, Seizures, Speech Problems, Tremor, Poor Balance Psychiatric: DENIES: Anxiety, Confusion, Mood changes, Depression, Hallucinations, Agitation, Suicidal Ideation, Homicidal Ideation, Delusions Past Family Social History Allergies: Coded Allergies: Morphine (Verified Allergy, Intermediate, confusion, 10/28/16) Past Medical History High Cholesterol: Yes Diabetes: No Diminished Hearing: No Hypertension: Yes Past Surgical History (right inguinal hernia "30 yrs ago"; abdominal hernia and infection 2005 Bilateral knees replacement Reported Medications Reviewed in EMR Active Ordered Medications Current Medications Cefazolin Sodium/ Dextrose (Ancef 2 Gm Premix) 50 ml @ 100 mls/hr ONCE ONCE IV Last administered on 10/28/16 21:10; Start 10/28/16 at 19:45; Stop at 20:14; Status DC Diphtheria/ Tetanus/Acell Pertussis 0.5 ml 0.5 ml ONCE ONCE IM Last administered on 10/28/16 21:10; Start 10/28/16 at 19:45; Stop 10/28/16 at 19:48 ; Status DC Sodium Chloride (NS 1000 ml Inj) 1,000 ml @ 1,000 mls/hr Q1H ONCE IV Last administered on 10/28/16 21:10; Start 10/28/16 at 19:45; Stop 10/28/16 at 20:44 ; Status DC Iohexol (Omnipaque 350 Inj) 85 ml STK-MED ONCE IV ; Start 10/28/16 at 21:27; Stop 10/28/16 at 21:28; Status DC Hydromorphone HCl (Dilaudid Pf Inj) 0.5 mg ONCE ONCE IV PUSH Last administered on 10/28/16 22:38; Start 10/28/16 at 22:30; Stop 10/28/16 at 22:31 ; Status DC Ondansetron HCl (Zofran Inj) 4 mg ONCE ONCE IV PUSH Last administered on 22:39; Start 10/28/16 at 22:30; Stop 10/28/16 at 22:31; Status DC Ondansetron HCl (Zofran Inj) 4 mg Q6H PRN IV NAUSEA OR VOMITING; Start at 22:30 Sodium Chloride (NS Flush) 2 ml BID IV FLUSH Last administered on 10/29/16 09: 51; Start 10/29/16 at 09:00 Sodium Chloride (NS Flush) 2 ml UNSCH PRN IVF FLUSH AFTER USING IV ACCESS; Start 10/28/16 at 22:30 Hydromorphone HCl (Dilaudid Pf Inj) 0.5 mg Q4H PRN IV PUSH PAIN GREATER THAN 5 Last administered on 10/29/16 11:30; Start 10/28/16 at 22:30 Sodium Chloride (NS Flush) 2 ml UNSCH PRN IV FLUSH FLUSH AFTER USING IV ACCESS ; Start 10/29/16 at 07:30; Stop 10/29/16 at 07:45; Status DC Acetaminophen (Tylenol) 650 mg Q6H PRN PO TEMPERATURE > 102 F; Start 10/29/16 at 07:30 Enalaprilat (Vasotec Inj) 1.25 mg Q8H PRN IV SBP>180, DBP>95; Start 10/29/16 at 07:30 Ondansetron HCl (Zofran Inj) 4 mg Q6H PRN IV NAUSEA OR VOMITING; Start at 07:30; Stop 10/29/16 at 07:45; Status DC Docusate Sodium (Colace) 100 mg BID PO Last administered on 10/29/16 09:28; Start 10/29/16 at 09:00 Magnesium Hydroxide (Milk Of Magnesia Liq) 30 ml Q6H PRN PO CONSTIPATION; Start 10/29/16 at 07:30 Famotidine (Pepcid) 20 mg HS PO ; Start 10/29/16 at 21:00 Ibuprofen (Motrin) 600 mg Q8H PO ; Start 10/29/16 at 10:00 Methocarbamol (Robaxin) 500 mg Q8H PO Last administered on 10/29/16 09:27; Start 10/29/16 at 08:00 Lidocaine HCl (Lidoderm 5% Patch.12 Hr) 1 patch DAILY T-DERMAL Last administered on 10/29/16 09:51; Start 10/29/16 at 09:00 Lidocaine HCl (Lidoderm 5% Patch.12 Hr) 1 patch Q24H T-DERMAL ; Start 10/29/16 at 21:00; Status Cancel Miscellaneous Information 1 Q24H T-DERMAL ; Start 10/29/16 at 10:00; Status Cancel Miscellaneous Information 1 Q24H T-DERMAL ; Start 10/29/16 at 21:00 Oxycodone/ Acetaminophen (Percocet 5-325 Mg) 1 tab Q4H PRN PO SEE LABEL COMMENTS; Start 10/29/16 at 13:00 Oxycodone/ Acetaminophen (Percocet 5-325 Mg) 2 tab Q4H PRN PO SEE LABEL COMMENTS Last administered on 10/29/16 13:48; Start 10/29/16 at 13:00 Amitriptyline HCl (Elavil) 100 mg HS PO ; Start 10/29/16 at 21:00 Atorvastatin Calcium (Lipitor) 20 mg HS PO ; Start 10/29/16 at 21:00 Clonidine (Catapres) 0.1 mg Q12HR PO Last administered on 10/29/16 13:16; Start 10/29/16 at 13:00 Family History Non cotributory Social History Alcohol Use: Yes (2 beers daily) Tobacco Use: No Substance Use: No Physical Exam Vital Signs Vital Signs Date Time Temp Pulse Resp B/P Pulse Ox O2 Delivery O2 Flow Rate FiO2 10/29/16 12:52 20 10/29/16 07:22 97.7 83 20 155/76 Room Air 10/29/16 06:20 21 10/29/16 00:38 94 16 146/85 95 10/28/16 21:09 89 16 159/81 99 10/28/16 16:30 90 16 98 Room Air 10/28/16 16:30 97.9 89 16 138/83 97 Physical Exam The patient is alert, awake and oriented to time, place and person. Speech is fluent. He is in moderate distress due to pain. He is in a sling on the right arm. Cranial nerve examination: pupils to be equal, round and reactive to light. Extra-ocular movements are intact. Facial motor and sensory function are normal and symmetrical. Gross hearing appears intact. Sternocleidomastoid and trapezius muscles are symmetrical. Other cranial nerves are intact. Neck is soft and supple with a good range of motion without pain. Muscle strength is normal in all muscle groups of both upper and lower extremities. right arm in a sling Sensory examination is intact to light touch and pin prick in both the upper and lower extremities. Deep tendon reflexes are symmetrical in both upper and lower extremities. There is a bilateral plantar flexion response. Cerebellar examination is unremarkable, without deficits. Laboratory Laboratory Tests Test 10/28/16 10/28/16 10/28/16 10/28/16 16:50 19:05 21:06 23:28 Bedside Hemoglobin 12.9 Bedside Hematocrit 38.0 Bedside Sodium 144 Bedside Potassium 4.1 Bedside Chloride 110 Bedside Blood Urea Nitrogen 21 Bedside Glucose 114 Total Bilirubin 0.5 Direct Bilirubin 0.1 Indirect Bilirubin 0.4 Aspartate Amino Transf 33 (AST/SGOT) Alanine Aminotransferase 31 (ALT/SGPT) Alkaline Phosphatase 86 Total Protein 7.2 Albumin 4.3 Lipase 103 Bedside Creatinine 0.6 White Blood Count 12.6 Red Blood Count 4.03 Hemoglobin 13.0 Hematocrit 37.6 Mean Corpuscular Volume 93.3 Mean Corpuscular Hemoglobin 32.3 Mean Corpuscular Hemoglobin 34.6 Concent Red Cell Distribution Width 13.6 Platelet Count 151 Mean Platelet Volume 8.0 Neutrophils (%) (Auto) 86.9 Lymphocytes (%) (Auto) 5.1 Monocytes (%) (Auto) 8.0 Eosinophils (%) (Auto) 0.0 Basophils (%) (Auto) 0.0 Neutrophils # (Auto) 11.0 Lymphocytes # (Auto) 0.6 Monocytes # (Auto) 1.0 Eosinophils # (Auto) 0.0 Basophils # (Auto) 0.0 CBC Comment DIFF FINAL Differential Comment Prothrombin Time 11.5 Prothromb Time International 1.0 Ratio Activated Partial 25.7 Thromboplast Time Urine Color YELLOW Urine Turbidity HAZY Urine pH 6.0 Urine Specific [place] GREATER THAN 1.050 Urine Protein TRACE Urine Glucose (UA) NEG Urine Ketones 10 Urine Occult Blood NEG Urine Nitrite NEG Urine Bilirubin NEG Urine Urobilinogen LESS THAN 2.0 Urine Leukocyte Esterase NEG Urine RBC 18 Urine WBC 3 Urine Squamous Epithelial <1 Cells Urine Mucus FEW Microscopic Urinalysis Comment CULT NOT INDICATED Result Diagram: 10/28/162105 Imaging Last Impressions Thoracic Spine CT 10/28/161942 Signed Impressions: Service Date/Time: Friday, October 28, 2016 20:41 - CONCLUSION: 1. Minimal fractures along the endplates superiorly at T3 and T12. 2. Fracture of the right third and fifth ribs medially. 3. Transverse process fracture on the right at T3. Girish Gannon MD Shoulder X-Ray 10/28/161942 Signed Impressions: Service Date/Time: Friday, October 28, 2016 20:20 - CONCLUSION: Degenerative changes without fracture. Girish Gannon MD Pelvis X-Ray 10/28/161942 Signed Impressions: Service Date/Time: Friday, October 28, 2016 20:25 - CONCLUSION: No acute fracture. Girish Gannon MD Lumbar Spine CT 10/28/161942 Signed Impressions: Service Date/Time: Friday, October 28, 2016 20:38 - CONCLUSION: 1. Minimal fracture superior endplate T12. 2. No lumbar spine fracture. Girish Gannon MD Chest X-Ray 10/28/161942 Signed Impressions: Service Date/Time: Friday, October 28, 2016 20:17 - CONCLUSION: Bibasilar densities. Girish Gannon MD Head CT 10/28/161642 Signed Impressions: Service Date/Time: Friday, October 28, 2016 20:32 - CONCLUSION: 1. Soft tissue contusion. 2. No acute intracranial abnormalities. Girish Gannon MD Chest CT 10/28/161642 Signed Impressions: Service Date/Time: Friday, October 28, 2016 20:41 - CONCLUSION: 1. Minimal bibasilar atelectasis. 2. Coronary artery calcifications. 3. No acute thoracic injury. Girish Gannon MD Cervical Spine CT 10/28/161642 Signed Impressions: Service Date/Time: Friday, October 28, 2016 20:34 - CONCLUSION: 1. No fracture or subluxation. Girish Gannon MD Abdomen/Pelvis CT 10/28/161642 Signed Impressions: Service Date/Time: Friday, October 28, 2016 20:38 - CONCLUSION: 1. Minimal fracture T12 vertebral body. 2. No abdominal visceral injury. Girish Gannon MD Attending Statement Neuro. neuro checks in a serial fashion. Muliple thoracic and rib fractures. Recommend nonoperative treatment with TLSO brace. MRI T spine when more comfortable Rib fractures. Narcotic analgesics for pain control Clavicle fx. Orthopedics consult Right arm sling Pulmonary. aggressive pulmonary toilette, nasotracheal suction, and breathing treatments with nebulizers. PT and OT evaluation Nutrition. Oral diet Renal. monitor closely urine output, BUN and creatinine Endocrine. Monitor serial Acu checks and SSI as needed in detail ID monitor for signs of infection Protonix for stress ulcer prophylaxis Syd moreno and SCD's for DVT prophylaxis Lewis Schaffer MD Oct 29, 2016 15:12
[2016-10-29] MEDS: SODIUM CHLORIDE 0.9% FLUSH 10 ML FLUSH IVF PRN (16:54)
[2016-10-29 20:10] VITALS: PULSE 103
[2016-10-29] MEDS ORDERED: LIDOCAINE HCL 5% PATCH T-DERMAL SCH (21:00)
[2016-10-29] MEDS: REMOVE OLD LIDOCAINE PATCH T-DERMAL SCH (21:00)
--- NOTE | 2016-10-29 21:02 | EKG ---
Date Performed: 10/28/2016 Time Performed: 19:58:09 PTAGE: 71 years EKG: Sinus rhythm BORDERLINE LEFT AXIS DEVIATION BORDERLINE ECG Compared to prior tracing no significant change DOCTOR: Terra Cristina Interpretating Date/Time 10/29/2016 21:02:44
[2016-10-29 21:21] VITALS: BP 161/71; PULSE 67; RESP 18; TEMP 98.4; O2SAT 97
[2016-10-29] MEDS: ATORVASTATIN 20 MG TAB PO SCH (21:42)
[2016-10-29] MEDS: FAMOTIDINE 20 MG TAB PO SCH (21:42)
[2016-10-29] MEDS: AMITRIPTYLINE HCL 50 MG TAB PO SCH (21:42)
[2016-10-29 23:49] VITALS: BP 165/77; PULSE 101; RESP 18; TEMP 98.4; O2SAT 97
[2016-10-30] VITALS (16 sets, daily range): BP systolic 122–180; BP diastolic 82–92; PULSE 74–101; RESP 16–20; TEMP 97.7–98.2; O2SAT 96–99
[2016-10-30] MEDS: METHOCARBAMOL 500 MG TAB PO SCH ×3 (00:42→16:10)
[2016-10-30] MEDS: oxyCODONE/ACETAMINOPHEN 5 MG/325 MG TAB PO PRN ×2 (00:43→10:57)
[2016-10-30] MEDS: IBUPROFEN 600 MG TAB PO SCH ×3 (02:00→18:15)
[2016-10-30 07:23] LABS: AUTOMATED NEUTROPHIL # 5.8 TH/MM3 (1.8-7.7); BASOPHIL % 0.3 % (0.0-2.0); EOSINOPHIL % 0.5 % (0.0-4.0); HEMO FLAGS DIFF FINAL; LYMPH % 15.4 % (9.0-44.0); LYMPHOCYTE # 1.2 TH/MM3 (1.0-4.8); MEAN CELL VOLUME 95.1 FL (80.0-100.0); MEAN CORPUSCULAR HGB CONC 33.6 % (32.0-36.0); MONO % 12.3 % (0.0-8.0); NEUT % 71.5 % (16.0-70.0); PLATELET COUNT 130 TH/MM3 (150-450); RED BLOOD COUNT 3.79 MIL/MM3 (4.50-5.90); RED CELL DISTRIBUTION WIDTH 13.5 % (11.6-17.2); WHITE BLOOD COUNT 8.1 TH/MM3 (4.0-11.0)
[2016-10-30 07:32] LABS: BICARBONATE 23.3 MEQ/L (21.0-32.0); POTASSIUM 3.7 MEQ/L (3.5-5.1)
--- NOTE | 2016-10-30 08:10 | RADRPT ---
EXAM DATE/TIME: 10/30/2016 07:57 [facility] COMPARISON: CHEST SINGLE AP, October 28, 2016, 20:17. INDICATIONS : Shortness of breath; previous chest trauma from fall off roof. MEDICAL HISTORY : Hypertension. Cerebrovascular disease. SURGICAL HISTORY : None. ENCOUNTER: Subsequent ACUITY: 2 days PAIN SCORE: 0/10 LOCATION: Bilateral chest FINDINGS: There continues to be bibasilar infiltrates suggestive of atelectasis. The upper lung lan remain c lear. No new pulmonary infiltrates are seen compared to the prior study. The heart size is stable. Th ere are no pleural effusions or pneumothorax. The bony structures are stable. CONCLUSION: Stable bibasilar infiltrates. Alphonso Shell MD on October 30, 2016 at 8:07 Board Certified Radiologist. This report was verified electronically.
[2016-10-30] MEDS: cloNIDine HCL 0.1 MG TAB PO SCH ×2 (10:47→20:58)
[2016-10-30] MEDS: DOCUSATE SODIUM 100 MG CAP PO SCH ×2 (10:47→20:59)
[2016-10-30] MEDS: LIDOCAINE HCL 5% PATCH T-DERMAL SCH (10:48)
[2016-10-30] MEDS: SODIUM CHLORIDE 0.9% FLUSH 10 ML FLUSH IV FLUSH SCH ×2 (10:48→21:02)
[2016-10-30] MEDS: HYDROmorphone HCL PF 1 MG/ML VIAL IV PUSH PRN ×2 (15:14→19:39)
[2016-10-30] MEDS: SODIUM CHLORIDE 0.9% FLUSH 10 ML FLUSH IVF PRN (15:15)
--- NOTE | 2016-10-30 16:03 | HHI.PR ---
Subjective Subjective Notes PTD; 2 Patient lying in bed Patient states, "I can't even move my neck. I'm in pain, and nothing seems to work." He rates his pain as 10.5/10. Patient is telling staff to give him hydrocodone 20 mg, and a fentanyl patch. "You have me on baby medication here." Patient threatens that when his daughter comes in to see him, she will cause a problem and "she will probably be arrested for what she does." Objective Vitals/I&O Vital Signs Date Time Temp Pulse Resp B/P Pulse Ox O2 Delivery O2 Flow Rate FiO2 10/30/16 13:10 98.2 87 20 122/83 97 10/30/16 07:31 21 10/29/16 07:22 Room Air Labs Laboratory Tests Test 10/30/16 06:35 White Blood Count 8.1 Red Blood Count 3.79 Hemoglobin 12.1 Hematocrit 36.0 Mean Corpuscular Volume 95.1 Mean Corpuscular Hemoglobin 32.0 Mean Corpuscular Hemoglobin 33.6 Concent Red Cell Distribution Width 13.5 Platelet Count 130 Mean Platelet Volume 8.0 Neutrophils (%) (Auto) 71.5 Lymphocytes (%) (Auto) 15.4 Monocytes (%) (Auto) 12.3 Eosinophils (%) (Auto) 0.5 Basophils (%) (Auto) 0.3 Neutrophils # (Auto) 5.8 Lymphocytes # (Auto) 1.2 Monocytes # (Auto) 1.0 Eosinophils # (Auto) 0.0 Basophils # (Auto) 0.0 CBC Comment DIFF FINAL Differential Comment Sodium Level 136 Potassium Level 3.7 Chloride Level 105 Carbon Dioxide Level 23.3 Anion Gap 8 Blood Urea Nitrogen 15 Creatinine 0.68 Estimat Glomerular Filtration 115 Rate Random Glucose 100 Calcium Level 8.6 Radiology Last Impressions Chest X-Ray 10/30/16 0600 Signed Impressions: Service Date/Time: October 07:57 - CONCLUSION: Stable bibasilar infiltrates. Alphonso Shell MD Thoracic Spine CT 10/28/16 194 Signed Impressions: Service Date/Time: Friday, October 28, 2016 20:41 - CONCLUSION: 1. Minimal fractures along the endplates superiorly at T3 and T12. 2. Fracture of the right third and fifth ribs medially. 3. Transverse process fracture on the right at T3. Girish Gannon MD Shoulder X-Ray 10/28/161942 Signed Impressions: Service Date/Time: Friday, October 28, 2016 20:20 - CONCLUSION: Degenerative changes without fracture. Girish Gannon MD Pelvis X-Ray 10/28/161942 Signed Impressions: Service Date/Time: Friday, October 28, 2016 20:25 - CONCLUSION: No acute fracture. Girish Gannon MD Lumbar Spine CT 10/28/161942 Signed Impressions: Service Date/Time: Friday, October 28, 2016 20:38 - CONCLUSION: 1. Minimal fracture superior endplate T12. 2. No lumbar spine fracture. Girish Gannon MD Head CT 10/28/161642 Signed Impressions: Service Date/Time: Friday, October 28, 2016 20:32 - CONCLUSION: 1. Soft tissue contusion. 2. No acute intracranial abnormalities. Girish Gannon MD Chest CT 10/28/161642 Signed Impressions: Service Date/Time: Friday, October 28, 2016 20:41 - CONCLUSION: 1. Minimal bibasilar atelectasis. 2. Coronary artery calcifications. 3. No acute thoracic injury. Girish Gannon MD Cervical Spine CT 10/28/161642 Signed Impressions: Service Date/Time: Friday, October 28, 2016 20:34 - CONCLUSION: 1. No fracture or subluxation. Girish Gannon MD Abdomen/Pelvis CT 10/28/161642 Signed Impressions: Service Date/Time: Friday, October 28, 2016 20:38 - CONCLUSION: 1. Minimal fracture T12 vertebral body. 2. No abdominal visceral injury. Girish Gannon MD Narrative Exam GENERAL: This is a 71-year-old male lying in bed. SKIN: Warm and dry. HEAD: Atraumatic. Normocephalic. EYES: PERRLA ENT: No nasal bleeding or discharge. Mucous membranes pink and moist. NECK: Trachea midline. No JVD. CARDIOVASCULAR: Regular rate and rhythm. RESPIRATORY: No accessory muscle use. Lungs are clear to auscultation. Breath sounds equal bilaterally. No distress or dyspnea. GASTROINTESTINAL: BS + x 4 quads. Abdomen soft, non-tender, nondistended. MUSCULOSKELETAL: Extremities without cyanosis, or edema. Right arm in a sling . + peripheral pulses x 4 extremities. Warm with good capillary refill and sensation. MAEW. NEUROLOGICAL: Awake and alert. Normal speech and pattern. Patient is very angry, then focused on his pain medication. A/P Problem List: (1) Fall from height of greater than 3 feet (2) Fracture, ribs (3) T12 compression fracture (4) Right clavicle fracture (5) T3 vertebral fracture Assessment and Plan [place]: This is a 71-year-old male who sustained a fall from a roof. He said he was sitting in a chair up on his roof, when the chair broke and he fell off the roof and landed flat on his back. No LOC. INJURIES: Soft tissue contusions head RIGHT clavicle fx (non-op) RIGHT rib fx (3,5) T3 / T12 endplate fx (TLSO brace) Procedures: Consults: Orthopedics. Neurosurgery. Diet: Regular diet. Tolerating po diet. Encourage good po intake with each meal. Pulmonary: Encourage good pulmonary toileting. IS at bedside and pt encouraged to use. Rationale for use explained to patient, and verbalized understanding. PAIN Management: Percocet 5-10 mg q4h. Motrin 600 mg q 8. Dilaudid 0.5 mg q4h. Robaxin 500 mg q 8h. Lidoderm patch. Activity: BR. PT and OT ordered. (TLSO brace ordered) GI prophylaxis: Pepcid hs. Bowel regimen: Colace and MOM. LBM: 0 DVT prophylaxis: Mechanical VTE with SCDs. Chemical management TBD. DC Planning: Case management consulted for assistance with final discharge disposition. Patient states that he wants to leave. Emotional support provided to patient and family at bedside and plan of care discussed. Discussed with RN at bedside. Patient is hemodynamically stable and being managed on the med/surg floor. The trauma team will round each day, and evaluate plan of care on a daily basis. RIGHT clavicle fx Orthopedics consulted and assisting in management and care Right arm sling Pain management PT and OT ordered Nonoperative management at this time Follow up with Dr. French outpatient RIGHT rib fx (3,5) Supportive care O2 as needed Good pulmonary toileting - IS, CDB. Pain management PT and OT ordered T3 / T12 endplate fx Neurosurgery consulted and assisting in management and care TLSO brace ordered PT and OT ordered MRI ordered - awaiting results HTN Restarted home meds Attending Statement The exam, history, and the medical decision-making described in the above note were completed with the assistance of the mid-level provider. I reviewed and agree with the findings presented. I attest that I had a [id number] encounter with the patient on the same day, and personally performed and documented my assessment and findings in the medical record. GCS 15, [place] chest exam stable, clear bilaterally ok for home pain meds will need PT to clear with TLSO for possible DC home tomorrow Problem Qualifiers (1) Fracture, ribs: Qualified Code: S22.41XA - Closed fracture of multiple ribs of right side, initial encounter (2) T12 compression fracture: Qualified Code: S22.080A - T12 compression fracture, closed, initial encounter (3) Right clavicle fracture: Qualified Code: S42.034A - Closed nondisplaced fracture of acromial end of right clavicle, initial encounter (4) T3 vertebral fracture: Qualified Code: S22.039A - Closed fracture of third thoracic vertebra, unspecified fracture morphology, initial encounter Geni Crespo Oct 30, 2016 16:03 Dao Jasmine MD Oct 30, 2016 22:53
--- NOTE | 2016-10-30 16:59 | MB ---
cc: CHENTE AKINS DATE OF CONSULTATION: 10/30/2016 REASON FOR CONSULTATION: Fracture of the right clavicle. HISTORY This patient is a 71-year-old white male who fell off of a roof on 10/28/2016 late in the afternoon, he was brought to the emergency room and was found to have evidence of multiple rib fractures, multiple thoracic spine fractures and a right clavicle fracture. I have been asked see him in reference to his clavicle fracture. ALLERGIES MORPHINE. MEDICATIONS See medication list. PHYSICAL EXAMINATION IN GENERAL: Alert cooperative elderly male. He is in moderate distress. He is in a sling on the right arm. He has no obvious discomfort left shoulder, elbow or wrist. There is moderate tenderness of the right shoulder but no tenderness of the elbow or wrist. Pelvis is stable no discomfort in either lower extremities. Motor examination both arms is normal. X-rays reviewed show evidence of the subtle fracture involving very distal portion of the right clavicle extending into the joint. No significant displacement is seen. Review of multiple radiographs shows evidence of a cephalad compression fracture of T12 and T3. There is evidence of right rib fractures without significant displacement. IMPRESSION 1. Fracture of the right clavicle 2. Fracture T3, T12 compression, compression. 3. Fracture, multiple right rib PLAN 1. Nonsurgical treatment. 2. Continue present sling 1. Ambulation as tolerated 2. Follow up in three to four weeks. If this displaces, surgical treatment may be necessary but I feel that it is unlikely. Chente Akins MD [facility] [place] /1:43 PM /4:37 PM [facility]ITALApoorva
[2016-10-30] MEDS ORDERED: fentaNYL 50 MCG/HR PATCH T-DERMAL SCH (20:00)
--- NOTE | 2016-10-30 20:41 | RADRPT ---
EXAM DATE/TIME: 10/30/2016 19:54 [facility] COMPARISON: No previous studies available for comparison. INDICATIONS : Fracture. Fell off of roof two days ago. MEDICAL HISTORY : None. SURGICAL HISTORY : Penile pump. ENCOUNTER: Initial ACUITY: 1 day PAIN SCORE: 8/10 LOCATION: Back. TECHNIQUE: Multiplanar multisequence MRI of the thoracic spine was performed. FINDINGS: There are mild superior endplate compression fractures through T3 and T12. There is also a minimal [place] per[place] endplate compression fracture of T10 and a probable nondisplaced fracture through the posterio r aspect of T9. These fractures are not associated with significant retropulsion. There is moderate degenerative disc disease of the thoracic spine. Mild disc protrusion present at T10-11 posteriorly effacing anterior thecal sac without cord compress ion. No significant cord compression is identified. No cord edema. There are several rib fractures better seen on recent CT. CONCLUSION: 1. Mild endplate compression fractures of T3, T10 and T12. There is a probable nondisplaced fracture posterior aspect T9. No significant cord impingement. Mild disc protrusion at T10-11. Bobby Kwon MD on October 30, 2016 at 20:33 Board Certified Radiologist. This report was verified electronically.
[2016-10-30] MEDS: FAMOTIDINE 20 MG TAB PO SCH (20:58)
[2016-10-30] MEDS: ATORVASTATIN 20 MG TAB PO SCH (20:59)
[2016-10-30] MEDS: AMITRIPTYLINE HCL 50 MG TAB PO SCH (20:59)
[2016-10-30] MEDS: REMOVE OLD LIDOCAINE PATCH T-DERMAL SCH (21:00)
[2016-10-31] MEDS: METHOCARBAMOL 500 MG TAB PO SCH ×2 (00:44→08:43)
[2016-10-31] MEDS: HYDROmorphone HCL PF 1 MG/ML VIAL IV PUSH PRN (00:48)
[2016-10-31 02:57] VITALS: BP 182/87; PULSE 95; RESP 18; TEMP 97.9; O2SAT 97
[2016-10-31 03:30] VITALS: PULSE 87
[2016-10-31] MEDS: IBUPROFEN 600 MG TAB PO SCH ×2 (03:30→08:45)
[2016-10-31 07:00] VITALS: PULSE 68
[2016-10-31] MEDS ORDERED: fentaNYL 50 MCG/HR PATCH T-DERMAL SCH (08:00)
[2016-10-31 08:36] VITALS: BP 155/87; PULSE 86; RESP 16; TEMP 98.2; O2SAT 98
[2016-10-31] MEDS: LIDOCAINE HCL 5% PATCH T-DERMAL SCH (08:43)
[2016-10-31] MEDS: cloNIDine HCL 0.1 MG TAB PO SCH (08:43)
[2016-10-31] MEDS: SODIUM CHLORIDE 0.9% FLUSH 10 ML FLUSH IV FLUSH SCH (08:46)
[2016-10-31] MEDS ORDERED: DOCUSATE SODIUM 50 MG/SENNA 8.6 MG TAB PO SCH (09:00)
[2016-10-31 11:07] VITALS: BP 112/72; PULSE 96; RESP 16; TEMP 97.5; O2SAT 97
--- NOTE | 2016-10-31 15:00 | HHI.DS ---
Discharge Summary Admission Date Oct 28, 2016 at 22:27 Discharge Date: Oct 31, 2016 Admitting Diagnosis Fall off roof, T3, T12 fx, clavicle fx right, rib fxs (1) Fall from height of greater than 3 feet (2) Fracture, ribs (3) T12 compression fracture (4) Right clavicle fracture (5) T3 vertebral fracture Brief History S/P Trauma: Fall CBC/BMP: 10/30/16 0635 10/30/16 0635 Significant Findings Laboratory Tests Test 10/28/16 10/28/16 10/28/16 10/28/16 16:50 19:05 21:06 23:28 Bedside Chloride 110 MMOL/L (98-109) Bedside Glucose 114 MG/DL (60-95) Bedside Creatinine 0.6 MG/DL (0.8-1.3) White Blood Count 12.6 TH/MM3 (4.0-11.0) Red Blood Count 4.03 MIL/MM3 (4.50-5.90) Hematocrit 37.6 % (39.0-51.0) Neutrophils (%) (Auto) 86.9 % (16.0-70.0) Lymphocytes (%) (Auto) 5.1 % (9.0-44.0) Neutrophils # (Auto) 11.0 TH/MM3 (1.8-7.7) Lymphocytes # (Auto) 0.6 TH/MM3 (1.0-4.8) Monocytes # (Auto) 1.0 TH/MM3 (0-0.9) Urine Turbidity HAZY (CLEAR) Urine Specific [place] GREATER THAN 1.050 (1.002-1.035) Urine Ketones 10 mg/dL (NEG) Urine RBC 18 /hpf (0-3) Urine Mucus FEW /lpf (OCC) Test 10/30/16 06:35 Red Blood Count 3.79 MIL/MM3 (4.50-5.90) Hemoglobin 12.1 GM/DL (13.0-17.0) Hematocrit 36.0 % (39.0-51.0) Platelet Count 130 TH/MM3 (150-450) Neutrophils (%) (Auto) 71.5 % (16.0-70.0) Monocytes (%) (Auto) 12.3 % (0.0-8.0) Monocytes # (Auto) 1.0 TH/MM3 (0-0.9) Imaging Last Impressions Chest X-Ray 10/30/16 0600 Signed Impressions: Service Date/Time: October 07:57 - CONCLUSION: Stable bibasilar infiltrates. Alphonso Shell MD Thoracic Spine MRI 10/30/16 0000 Signed Impressions: Service Date/Time: , October 30, 2016 19:54 - CONCLUSION: 1. Mild endplate compression fractures of T3, T10 and T12. There is a probable nondisplaced fracture posterior aspect T9. No significant cord impingement. Mild disc protrusion at T10-11. Bobby Kwon MD Thoracic Spine CT 10/28/161942 Signed Impressions: Service Date/Time: Friday, October 28, 2016 20:41 - CONCLUSION: 1. Minimal fractures along the endplates superiorly at T3 and T12. 2. Fracture of the right third and fifth ribs medially. 3. Transverse process fracture on the right at T3. Girish Gannon MD Shoulder X-Ray 10/28/161942 Signed Impressions: Service Date/Time: Friday, October 28, 2016 20:20 - CONCLUSION: Degenerative changes without fracture. Girish Gannon MD Pelvis X-Ray 10/28/161942 Signed Impressions: Service Date/Time: Friday, October 28, 2016 20:25 - CONCLUSION: No acute fracture. Girish Gannon MD Lumbar Spine CT 10/28/161942 Signed Impressions: Service Date/Time: Friday, October 28, 2016 20:38 - CONCLUSION: 1. Minimal fracture superior endplate T12. 2. No lumbar spine fracture. Girish Gannon MD Head CT 10/28/161642 Signed Impressions: Service Date/Time: Friday, October 28, 2016 20:32 - CONCLUSION: 1. Soft tissue contusion. 2. No acute intracranial abnormalities. Girish Gannon MD Chest CT 10/28/161642 Signed Impressions: Service Date/Time: Friday, October 28, 2016 20:41 - CONCLUSION: 1. Minimal bibasilar atelectasis. 2. Coronary artery calcifications. 3. No acute thoracic injury. Girish Gannon MD Cervical Spine CT 10/28/161642 Signed Impressions: Service Date/Time: Friday, October 28, 2016 20:34 - CONCLUSION: 1. No fracture or subluxation. Girish Gannon MD Abdomen/Pelvis CT 10/28/161642 Signed Impressions: Service Date/Time: Friday, October 28, 2016 20:38 - CONCLUSION: 1. Minimal fracture T12 vertebral body. 2. No abdominal visceral injury. Girish Gannon MD PE at Discharge GENERAL: 71-year-old well-nourished male found OOB on BSC (without TLSO brace on ). SKIN: Warm and dry. NECK: Trachea midline. No JVD. CARDIOVASCULAR: Regular rate and rhythm. RESPIRATORY: No accessory muscle use. Lungs are clear and diminished to auscultation. Breath sounds equal bilaterally. GASTROINTESTINAL: BS + x 4 quads. Abdomen soft, non-tender, nondistended. MUSCULOSKELETAL: Extremities without cyanosis, or edema. Right arm in a sling. + peripheral pulses x 4 extremities. MAEW. NEUROLOGICAL: Awake and alert. Normal speech and pattern. Hospital Course [facility]: Fall from a roof. No LOC. 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 Hernia. Knee replacement, chronic back pain Diet: Regular, tolerating Pulm: IS Pain: Percocet. Motrin. Dilaudid IV. Robaxin. Lidoderm patch. Fentanyl patch Activity: OOB. PT and OT ordered. (TLSO brace when OOB) GI: Pepcid HS Bowel: Miriam-colace 2 tabs BID. DVT: SCD's RIGHT clavicle fx Orthopedics consulted Nonoperative management Right arm sling Pain control PT and OT ordered Follow up with Dr. Nixon outpatient RIGHT rib fx (3,5) Supportive care Pulmonary toileting Pain control OOB- PT and OT T3, T10, T12 endplate fx Neurosurgery consulted and cleared for DC TLSO brace when OOB- educated on importance of having TLSO brace on when out of bed. PT and OT ordered MRI complete- NS dw patient F/U in 1 month Continue home pain medications. Discontinue Xarelto. F/U with PCP in 1 week. F/U with rehab medicine in 1 month. Plan of care discussed with patient and RN at bedside. Patient is clear from trauma surgery standpoint to safely discharge home. Pt Condition on Discharge: Stable Discharge Disposition: Discharge Home Discharge Instructions DIET: Follow Instructions for: As Tolerated, No Restrictions Activities you can perform: Full Weight Bearing, See Additionl Instruction Activities to Avoid: Concussion Sports, Lifting/Bending, Strenuous Activity Other Activity Instructions: Wear TLSO brace and right arm sling when out of bed. Ann-Marie Laurent Oct 31, 2016 15:00
[2016-11-03] MEDS ORDERED: REMOVE OLD FENTANYL PATCH T-DERMAL SCH (08:00)
== END 2016-10-31 13:52 | disposition home or self-care (01) ==
LOC: NEPE 16:26 → NEDA 22:27 → NEDH 10-29 02:42 → NEPHCDU 10-29 14:04
PROVIDERS: ADMIT Surgery; ATTEND Surgery
DX: S22.078A Other fracture of T9-T10 vertebra, initial encounter for closed fracture (principal); S22.038A Other fracture of third thoracic vertebra, initial encounter for closed fracture; S22.088A Other fracture of T11-T12 vertebra, initial encounter for closed fracture; S22.079A Unspecified fracture of T9-T10 vertebra, initial encounter for closed fracture; S22.41XA Multiple fractures of ribs, right side, initial encounter for closed fracture; S42.031A Displaced fracture of lateral end of right clavicle, initial encounter for closed fracture; R91.8 Other nonspecific abnormal finding of lung field; M25.512 Pain in left shoulder; R10.2 Pelvic and perineal pain; R06.02 Shortness of breath; I25.10 Atherosclerotic heart disease of native coronary artery without angina pectoris; I10 Essential (primary) hypertension; E78.00 Pure hypercholesterolemia, unspecified; M25.78 Osteophyte, vertebrae; M50.322 Other cervical disc degeneration at C5-C6 level; M51.36 Other intervertebral disc degeneration, lumbar region; Z79.899 Other long term (current) drug therapy; W13.2XXA Fall from, out of or through roof, initial encounter
CPT/HCPCS: 70450; 71010; 71260; 72125; 72128; 72131; 72146; 72170; 73030; 74177; 76937; 80048; 80076; 81001; 82435; 82565; 82947; 83690; 84132; 84295; 84520; 85025; 85610; 85730; 90471; 90715; 93005; 94150; 96365; 97110; 97162; 97166; 97530; 99285; G0378; G8987; G8988; J0690; J1170; J2405; J7030; L0200; L0484; Q9967